=== PATIENT | male | born 1960 | race Caucasian/White ===

== ENCOUNTER 2025-01-13 15:06 | Emergency (ER) | payer MEDICAID ==
[~2025-01-13] VITALS: Ht 172.7 cm; Wt 97.3 kg
--- NOTE | 2025-01-13 16:06 | RADIOLOGY REPORT ---
CHEST RADIOGRAPH Indication: CP Technique: Single frontal view of the chest was obtained COMPARISON: None FINDINGS: Lines and Tubes: None Lungs: Clear Pleura: No effusion. No pneumothorax. Cardiomediastinal contours: Calcification of the aortic arch. Bones: Unremarkable IMPRESSION: 1. No acute disease.
--- NOTE | 2025-01-13 16:09 | ELECTROCARDIOGRAPH REPORT ---
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 Rick Diez Measurements Intervals [place] Rate: 97 P: 75 LA: 165 QRS: 49 QRSD: 115 T: 63 QT: 374 QTc: 475 Interpretive Statements Sinus rhythm Ventricular premature complex Probable left atrial enlargement Incomplete right bundle branch block Electronically Signed On 01-14-2025 10:24:[address] Rick Diez Please click the below link to view image of tracing.
[2025-01-13 16:25] LABS: MEAN PLATELET VOLUME 7.5 FL (7.4-10.4); RED CELL DISTRIBUTION WIDTH 14.5 % (11.5-14.5)
--- NOTE | 2025-01-13 16:37 | Physician Documentation ---
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 No obvious trigger provocation. Reports increased abdominal distention. The shortness a breath and exertional, and he now reports that it with a minimal activities of daily living result in severe exhaustion. Palliated by rest. Did not attempt to treat it. Patient is a lifelong smoker. Denies any fever or chills. Medication Reconciliation Allergies: Coded Allergies: No Known Allergies (Unverified , 01/13/25) Scheduled Bumetanide (Bumetanide), 1 TAB PO Q12H, (Reported) Sildenafil Citrate* (Revatio*), 1 TAB PO TID, (Reported) Review of Systems ROS 10 point review of systems was performed and unless noted above in HPI is negative for acute process/complaint. Physical Exam Vital Signs: Temperature: 97.0, Source: Temporal, Heart Rate: 69, Respiratory Rate: 14, BP: 133/90, Pulse Oximetry: 94, Weight: 97.300 Physical Exam GENERAL: Awake, alert, oriented, GCS 15, no apparent distress, non-toxic appearing, answers questions, follows commands appropriately. HEENT: Atraumatic, normocephalic, pupils equal, extraocular muscles intact, sclerae anicteric, mucus membranes moist, oropharynx is clear, no stridor. NECK: supple, full active range of motion, trachea midline, no thyromegaly, no lymphadenopathy, no JVD. CARDIOVASCULAR: regular rate/rhythm, no murmurs/gallops/rubs, Pulses are 2+ in all extremities and symmetric. Capillary refill less than 2 seconds. PULMONARY: Nonlabored, good air movement ,no respiratory distress, speaking in full sentences, clear to auscultation bilaterally, no wheezing, no ronchi, no rales, no accessory muscle use. GASTROINTESTINAL: Soft, non-tender, non-distended, normal active bowel sounds, no organomegaly, no pulsatile masses, no CVA tenderness. NEUROLOGIC: Lucid with normal mental status. Normal facial symmetry. Moves all extremities symmetrically and with purpose. No truncal ataxia. Speech is fluid without evidence of dysarthria or aphasia, no focal deficits appreciated. MUSCULOSKELETAL: There is full range of motion of all extremities. There is no joint pain or joint swelling or joint erythema. There is no muscle pain or tenderness or swelling. EXTREMITIES: warm, well-perfused, no cyanosis, no clubbing, no edema, no acute deformities. Skin: warm, dry, no rashes or lesions, no jaundice, no petechiae orpurpura. No ecchymosis. PSYCHIATRIC: Normal affect, normal insight, normal concentration. Focused exam: [] Progress Progress Note Road test: Patient passed the road test saturating between 94 and 96% while ambulating throughout our emergency room. After the road test patient did sit down and his oxygen did drop to 88 briefly Results/Orders Results/Orders Vital Signs 01/13/25 01/13/25 01/13/25 01/13/25 15:41 16:20 16:27 17:28 Temp 97.0 97.0 97.0 Pulse 80 69 58 Resp 17 14 14 18 B/P (MAP) 117/78 133/90 (104) 161/65 (97) Pulse Ox 95 94 95 O2 Flow Rate 0 Laboratory Tests Test 01/13/25 15:18 01/13/25 18:20 01/13/25 18:21 01/13/25 19:22 White Blood Count 10.5 Red Blood Count 4.84 Hemoglobin 15.6 Hematocrit 44.3 Mean Corpuscular Volume 91.6 Mean Corpuscular Hemoglobin 32.3 H Mean Corpuscular Hemoglobin Concent 35.2 Red Cell Distribution Width 14.5 Platelet Count 261 Mean Platelet Volume 7.5 Neutrophils (%) (Auto) 62.6 Lymphocytes (%) (Auto) 27.8 Monocytes (%) (Auto) 7.7 Eosinophils (%) (Auto) 1.1 Basophils (%) (Auto) 0.8 Neutrophils # (Auto) 6.6 Lymphocytes # (Auto) 2.9 Monocytes # (Auto) 0.8 Eosinophils # (Auto) 0.1 Basophils # (Auto) 0.1 CBC Comment D-Dimer 0.60 H D-Dimer Comment Sodium Level 143 Potassium Level 3.2 L Chloride Level 103 Carbon Dioxide Level 31.7 Anion Gap 8 Blood Urea Nitrogen 10 Creatinine 1.06 Estimated GFR/1.73 m2 71 BUN/Creatinine Ratio 9.4 L Glucose Level 124 H Calcium Level 8.7 Troponin I High Sensitivity 16 15 Pro-B-Type Natriuretic Peptide 158 H Albumin 3.5 Chemistry Comments Blood Gas Specimen Type Arterial Blood Gas Puncture Site Rr O2 Saturation 94.7 Arterial Blood pH (Temp corrected) 7.410 Arterial Blood pCO2 (Temp correct) 47.4 Arterial Blood pO2 (Temp corrected) 73.2 L Arterial Blood PO2/FiO2 Ratio 2.77 Arterial Blood HCO3 29.6 H Arterial Blood Base Excess 3.8 H Arterial Blood Oxyhemoglobin 92.9 L Arterial Blood Carboxyhemoglobin 1.6 H Arterial Blood Methemoglobin 0.3 Arterial Blood Deoxyhemoglobin 5.2 H Fernando Test Yes Blood Gas Hemoglobin 14.7 Blood Gas Temperature 36.1 Blood Gas Liter Flow 2 Blood Gas Modality Nasal cannula FiO2 28.0 Blood Gas Critical Value Called To Kelly smith do Troponin I High Sens Percent Delta 6 Troponin I Hi Sens Absolute Change -1 EKG/XRAY/CT/US/VASC/MRI EKG : Additional Comment EKG interpreted by myself shows time of 1739, rate 66, sinus rhythm, normal axis, no ST changes Chest X-Ray : Additional Comments Exam: CHEST,SINGLE VIEW CHEST RADIOGRAPH Indication: CP Technique: Single frontal view of the chest was obtained COMPARISON: None FINDINGS: Lines and Tubes: None Lungs: Clear Pleura: No effusion. No pneumothorax. Cardiomediastinal contours: Calcification of the aortic arch. Bones: Unremarkable IMPRESSION: 1. No acute disease. Medical Decision Making Findings Facility Status: ED Holds, [facility] process The plan was discussed with the patient, who demonstrates clear understanding of the plan and is in agreement with the plan unless otherwise noted in the chart. All questions have been answered, all concerns were addressed unless otherwise documented. I was available throughout their ED stay for frequent reassessment and question s. Differential Diagnoses (considered and possible or likely): [CHF exacerbation, COPD exacerbation, ACS, pneumonia, occult bacteremia, upper respiratory infection with a viral, myocarditis, endocarditis, valvular disorder, less likely mitochondrial poisoning with carbon monoxide as cyanide or aspirin. Anemia has been considerably less likely. PE is also in differential diagnosis. ] ??Differential Diagnoses (considered and unlikely, not requiring evaluation currently): [Pneumothorax is less likely.] MDM Data Please see HPI for the following: Independent Historians and external Records Review. Historian: [Patient] Independent Historians: ?[] Medication Management: [Reviewed medication list] Social History and determinants: [Reviewed] Please see the body of the note for the following: Any independent interpretations of ECG, imaging studies. All vitals signs/haemodynamics, ordered tests were independently reviewed and interpreted by myself. Nursing triage complaint and vitals reviewed, additional nursing notes were reviewed as available and I agree unless otherwise noted or documented in contradiction in the chart Vital Signs: Independently reviewed Labs: Independently interpreted Imaging: Independently interpreted Old Medical Records: Independently reviewed, see HPI for relevant summary and information Pulse Oximetry: [97%] interpreted as [normal on room air] by me [Deckhand Sponge Boat: [Regular Rate, Regular rhythm, no ectopy, NSR] reviewed and interpreted by me] Additionally notably showing: [] Tests considered but not ordered include: [] Social Determinants of Health Impact: Patient was evaluated in [facility], [facility] [place] to healthcare due to below par ratio of patient to medical providers. [] Comorbid Conditions Impacting Present Evaluation and Care/Treatment: [] Management Discussions with other Healthcare Providers: [] Treatment and Disposition Medication Management (Given or considered): []. See EMR for details Consideration for Hospitalization/Escalation/Deescalation of Care: Admission for observation has been considered, [however the patient is able to tolerate p.o., their symptoms are controlled, they are able to rely on oral medications, and their chief complaint/diagnosis can be managed on outpatient basis.] ?ED Course:?[] ?Shared decision making:?[] Code status:?FULL Please see the full Electronic Medical Record for full details of nursing documentation, medications list, other records of complete past medical history and conditions, vital signs, laboratory studies, and any radiologic study interpretations by radiologists. Portions of this note were completed using [employer] dictation software and as a result there may exist minor errors in spelling. I have reviewed elements of past family and social history and agree as included in note. Dr. Nagy assuming care: Reviewed patient's case and spoke with the patient and did a physical exam. No wheezing upon auscultation. Patient did passed the road test however his oxygen saturation did drop to 88 although he is noted to be a lifelong smoker there may be an element of COPD. All other workup reassuring. Possible mild CHF exacerbation. Offered admission however patient would prefer to follow up with his doctor. I will give him small prescription for his Bumex to tide him over until he is able to see his doctor. ER precautions discussed. Differential Dx:Considerations: Include: anxiety, asthma, bronchitis, cardiogenic shock, CHF, COPD, dysrhythmia Departure Disposition: HOME / SELF CARE / HOMELESS Impression: Primary Impression: Exertional dyspnea Additional Impressions: Orthopnea Paroxysmal nocturnal dyspnea History of congestive heart failure Condition: Stable Discharge Instructions: Heart Failure, Diagnosis, [id number] Additional Instructions: Call your doctor tomorrow to arrange for close follow up Referrals: NO PRIMARY CARE PROVIDER (PCP) Prescriptions Bumetanide (Bumetanide) 2 Mg Tablet 1 TAB PO Q12H for 30 Days, #60 TAB 0 Refills Prov: JAYRO NAGY MD 01/13/25 Education Educated: Patient, Family Educated regarding: diagnosis, treatment, need for follow up Signature Scribe Signature: No scribe Attestation: The note accurately reflects work and decisions made by me.Jayro Nagy MD 01/13/25 19:51 This note accurately reflects clinical decisions, work performed by myself, DO BARBARA Moreno NICHOLAS M DO Jan 13, 2025 16:37 JAYRO NAGY MD Jan 13, 2025 19:14
[2025-01-13 16:41] LABS: CREATININE 1.06 MG/DL (0.60-1.10); PRO BRAIN NATRIURETIC PEPTIDE 158 PG/ML (0-125); TOTAL CARBON DIOXIDE 31.7 MMOL/L (24-32); eCRCL 69 ML/MIN; eGFR 71 ML/MIN
[2025-01-13 17:28] VITALS: BP 161/65; PULSE 58; RESP 18; O2SAT 95
--- NOTE | 2025-01-13 17:42 | ELECTROCARDIOGRAPH REPORT ---
[facility] Test Date: 2025-01-13 Test Time: 17:39:22 Pat Name: SHAVON WILSON Department: [facility]- Patient ID: [facility]-[id number] Room: Gender: M Director Data Management: : 1960 Requested By: TRACY JIMENEZ Order Number: [id number] Reading MD: Dr. Rick Diez Measurements Intervals [place] Rate: 66 P: 58 MA: 179 QRS: 84 QRSD: 118 T: 62 QT: 526 QTc: 552 Interpretive Statements Sinus rhythm Sinus pause Nonspecific intraventricular conduction delay Nonspecific T abnrm, anterolateral leads Electronically Signed On 01-14-2025 6:16:[address] Rick Diez Please click the below link to view image of tracing.
[2025-01-13] MEDS ORDERED: BUME2TAB7 PO ×2 (18:28→19:50)
[2025-01-13] MEDS ORDERED: SILD20TA PO (18:28)
[2025-01-13 18:30] LABS: ABG BASE EXCESS 3.8 mmol/L (-2.0-3.0); ABG HCO3 29.6 mmol/L (21.0-28.0); ABG OXYGEN SATURATION 94.7 % (94.0-98.0); ABG PCO2 (T) 47.4 mmHg (35.0-48.0); ABG PH (T) 7.410 (7.350-7.450); ABG PO2 (T) 73.2 mmHg (83.0-108.0); ALLEN'S TEST Yes; FCOHb 1.6 % (0.5-1.5); FHHb 5.2 % (0.0-5.0); FIO2 28.0 mmHg/%; FLOW 2 L/min; FMetHb 0.3 % (0.0-1.5); FO2Hb 92.9 % (94.0-98.0); MODE NASAL CANNULA; PATIENT TEMPERATURE 36.1; TOTAL HEMOGLOBIN 14.7 G/dl (13.5-17.5)
--- NOTE | 2025-01-13 18:38 | RADIOLOGY REPORT ---
CTA Chest with intravenous contrast INDICATION: sob, elev dimer COMPARISON: None TECHNIQUE: Multidetector spiral CTA of the chest was performed of the chest with intravenous contrast . PULMONARY ANGIOGRAPHY PROTOCOL was utilized using a bolus-tracking technique centered on the main p ulmonary artery. Axial, coronal and sagittal multiplanar and MIP reformats were performed. CONTRAST: Type of contrast: Omni 350 Contrast injected: 100 ml Radiation dose : Chest: CTDI volume is 40 mGy. Dose-length product is 782 mGy*cm The dose indicators for CT are the volume computed Tomography (CT) dose Index (CTDIvol) and the dose Length product (DLP), and are measured in units of mGy and mGy-cm, respectively. These indicators are not patient dose, but values generated from the CT scanner acquisition factors. The report includes radiation exposure data for exposures received during this examination. Findings: Pulmonary artery: No pulmonary embolism Lower neck: Normal thyroid. Lungs: No focal consolidation, pleural effusion or pneumothorax. Atelectasis and scarring in the lung bases. Heart/Vascular Structures: Normal heart size. No pericardial effusion. Lymph Nodes: Subcentimeter mediastinal lymph nodes. Pleura: No pleural effusion or significant pneumothorax. Musculoskeletal: No acute osseous abnormality. Soft tissues: Normal. Upper abdomen: Limited portions of the upper abdomen are unremarkable. IMPRESSION: 1. No pulmonary embolism. 2. No acute thoracic finding. HS:Y
[2025-01-14 00:27] VITALS: TEMP 97
== END 2025-01-14 00:29 | disposition home or self-care (01) ==
LOC: ER 15:08
DX: R06.01 Orthopnea (principal); R06.09 Other forms of dyspnea; I50.9 Heart failure, unspecified; F17.200 Nicotine dependence, unspecified, uncomplicated; Z79.899 Other long term (current) drug therapy
CPT/HCPCS: 36415; 36600; 71045; 71275; 80048; 82803; 83880; 84484; 85018; 85025; 85379; 93005; 99285; Q9967; A4615